=== PATIENT | male | born 1970 | race Caucasian/White ===

== ENCOUNTER 2016-10-26 15:20 | Emergency (ER) | payer BC, OTHER ==
[~2016-10-26] VITALS: Ht 180.3 cm; Wt 90.9 kg
[~2016-10-26 15:20] MED LIST: CLR10 PO; KETO10TA PO; OXYC-57 PO; PRAV20TA PO; PRLSR20 PO
[2016-10-26 15:24] VITALS: BP 142/94; PULSE 107; TEMP 36.6; O2SAT 97; Ht 180.3 cm; Wt 90.9 kg
[2016-10-26] MEDS ORDERED: IBUP-103 PO (15:50)
--- NOTE | 2016-10-26 16:47 | DIAGNOSTIC IMAGING REPORT ---
L-SPINE MIN 4 VIEWS ROUTINE CLINICAL HISTORY: Low back pain. Injury. COMPARISON: None FINDINGS: Alignment of lumbar spine is anatomic. Vertebral body heights are maintained. There is no acute fracture. Disc spaces are preserved. There is mild endplate osteophytosis. IMPRESSION: 1. No acute lumbar spine fracture or subluxation. 2. Mild multilevel degenerative changes of the lumbar spine. Electronically signed by: Armin Squires M.D. 10/26/2016 4:45 PM Dictated Date/Time: 10/26/2016 4:43 PM
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
== END 2016-10-26 17:25 | disposition home or self-care (01) ==
LOC: C.EDB 15:21 → C.EDD 17:25
DX: S39.012A Strain of muscle, fascia and tendon of lower back, initial encounter (principal); Y99.0 Civilian activity done for income or pay; V83.0XXA Driver of special industrial vehicle injured in traffic accident, initial encounter; I25.10 Atherosclerotic heart disease of native coronary artery without angina pectoris; E78.5 Hyperlipidemia, unspecified; K21.9 Gastro-esophageal reflux disease without esophagitis; Z82.49 Family history of ischemic heart disease and other diseases of the circulatory system; Z79.899 Other long term (current) drug therapy

== ENCOUNTER 2021-07-01 08:12 | Inpatient (IN) ==
[2021-07-01] MEDS ORDERED: ONDANSETRON INJ 2 MG/ML 2 ML VIAL IV STA (08:38)
[2021-07-01] MEDS ORDERED: MoRPHine SULFATE 4 MG/ML 1 ML CARP\\VIAL IV STA (08:38)
[2021-07-01] MEDS ORDERED: SODIUM CHLORIDE 0.9% 1000ML 1,000 ML IV STA (08:38)
[2021-07-01] MEDS ORDERED: MoRPHine SULFATE 4 MG/ML 1 ML CARP\\VIAL IV PRN ×2 (08:38→16:19)
[2021-07-01 09:33] LABS: Basophils # (auto) 0.02 K/uL (0-0.2); Basophils % (auto) 0.1 %; Eosinophils # (auto) 0.14 K/uL (0-0.5); Hematocrit (blood only) 46.7 % (42-52); Hemoglobin 16.1 g/dL (14.0-18.0); Immature Granulocytes # (auto) 0.02 K/uL (0.00-0.02); Immature Granulocytes % (auto) 0.1 %; Lymphocytes # (auto) 0.97 K/uL (1.2-3.4); Mean Corpuscular Hemoglobin 30.6 pg (25-34); Mean Corpuscular Hgb Conc 34.5 g/dL (32-36); Mean Corpuscular Volume 88.6 fL (80-100); Mean Platelet Volume 8.7 fL (7.4-10.4); Monocytes # (auto) 1.46 K/uL (0.11-0.59); Monocytes % (auto) 10.6 %; Neutrophils # (auto) 11.17 K/uL (1.4-6.5); Neutrophils % (auto) 81.2 %; Platelet Count 317 K/uL (130-400); RDW Standard Deviation 42.7 fL (36.4-46.3); Red Blood Count 5.27 M/uL (4.7-6.1); White Blood Count 13.78 K/uL (4.8-10.8)
[2021-07-01 09:50] LABS: Albumin Level 3.4 gm/dl (3.4-5.0); BUN Creatinine Ratio 9.3 (10-20); Calcium 8.9 mg/dl (8.5-10.1); Est GFR (African American) 71.2 ml/min; Est GFR (Non-African American) 61.5 ml/min; Potassium 3.9 mmol/L (3.5-5.1)
[2021-07-01 09:53] LABS: Albumin Globulin Ratio 0.7 (0.9-2); Bilirubin,Total 0.7 mg/dl (0.2-1); Globulin 4.8 gm/dl (2.5-4.0); Total Protein 8.2 gm/dl (6.4-8.2)
[2021-07-01 10:05] LABS: Appearance Urine Clear (Clear); Bacteria Urine Automated Negative (Negative); Blood Urine 2+ (Negative); Color Urine Dark Yellow; Glucose Urine UA Negative (Negative); Ketones Urine 1+ (Negative); Leukocyte Esterase Urine Negative (Negative); Nitrite Urine Negative (Negative); Protein Urine 1+ (Negative); RBC Urine Automated 0-4 /hpf (0-4); Specific Gravity Urine 1.023 (1.000-1.030); Urobilinogen Urine Negative (Negative); pH Urine 5.5 (4.5-7.5)
[2021-07-01 10:15] LABS: Bilirubin Urine 1+ (Negative)
[2021-07-01] MEDS ORDERED: OPTIRAY 320 100ml IV ONE (11:14)
--- NOTE | 2021-07-01 11:39 | CT Scan Report ---
ABDOMEN AND PELVIS CT WITH IV AND ORAL CONTRAST CT DOSE: 450.66 mGy.cm HISTORY: Lower abd pain TECHNIQUE: Multiaxial CT images of the abdomen and pelvis were performed following the use of intrave nous and oral contrast. A dose lowering technique was utilized adhering to the principles of ALARA. COMPARISON STUDY: None. FINDINGS: There is 9 mm subpleural nodule within the base of the right middle lobe on image 85. Groun dglass densities within the lung bases consistent with mild dependent change. No fractures within the visualized osseous structures. Tiny fat-containing left inguinal hernia. A few subcentimeter hypoden se lesions noted within the liver. These are technically too small to characterize but statistically represent cysts. The gallbladder, pancreas, spleen, adrenal glands, and kidneys are unremarkable. No retroperitoneal lymphadenopathy. The prostate gland is mildly enlarged. Bladder is decompressed. This moderate bladder wall thickening with adjacent fat stranding. Focal thickening within the sigmoid co malina with pericolonic fat stranding. This likely represents an acute sigmoid diverticulitis. There is a 4 cm pericolonic gas and fluid collection with near complete peripheral enhancement. Therefore, thi s is consistent with a pericolonic abscess. No evidence for bowel obstruction. Normal appendix. IMPRESSION: 1. Acute sigmoid diverticulitis with an associated 4 cm pericolonic abscess. Recommend follow-up to e nsure resolution. 2. No evidence of bowel structure. 3. Normal appendix. 4. No hydronephrosis. 5. A 9 mm subpleural nodule within the right lower lobe. [address] follow-up recommended to en sure stability. ACT 112: Positive. There are findings on this exam that require communication between the performing entity and the patient following Patient Test Result Information Act ([place] Act 112) guidelines. Electronically signed by: Phuc Dugan M.D. 07/01/2021 11:38 AM
[2021-07-01] MEDS ORDERED: PIPERACILLIN/TAZOBACTAM 4.5 GM/120 ML BAG IV ONE (12:28)
[2021-07-01] MEDS ORDERED: PIPERACILL/TAZOBAC CONSULT ACTIVE PRN ×3 (12:28→16:41)
--- NOTE | 2021-07-01 13:22 | History & Physical Report ---
Date of Service July 01, 2021 Assessment & Plan (1) Diverticulitis of large intestine with abscess: Plan: 50yo male with history of GERD and HLP presenting with acute complicated diverticulitis. He endorses two days of lower abdominal pain. CT with acute sigmoid diverticulitis with 4cm pericolonic abscess. Presently afebrile, HD stable, nontoxic in appearance. Abdomen is tender on exam but soft, ND. -Admit to medical. Keep patient NPO for now. -Appreciate General Surgery and GI assistance -Zosyn -Morphine PRN pain -Zofran PRN Nausea -Patient will need repeat imaging in 2-3 days to assess abscess response to antibiotics. (2) Nodule of lower lobe of right lung: Plan: Incidental finding -Repeat CT scan in 6 months (3) Hyperlipidemia: Plan: Chronic. Stable -Continue pravastatin 20 mg (4) GERD (gastroesophageal reflux disease): Plan: Chronic. Patient on Omeprazole at home -Pepcid 40mg po daily History of Present Illness Chief Complaint: Abdominal pain Primary Care Provider: Hailey Dale PA-C Maximiliano Márquez is a 50-year-old male presenting with diverticular abscess. Patient first developed abdominal pain on the evening of . He reports that he ate rather poorly that day. In the evening he developed severe lower abdominal pain and the feeling that he could not have a bowel movement. He states he passed a small bowel movement and some gas with relief. His symptoms then lasted approximately 1 day and resolved. Patient experienced similar symptoms beginning 2 days ago. He reports that he ate rather poorly during the day, a lot of sweets and desserts. In the evening he developed severe lower abdominal pain which has progressed over the last 2 days. The pain is sharp and stabbing in nature and radiates into his rectum. He has been taking Ex-Lax and passing very small stools. He is passing flatus. Last full bowel movement was 2 days ago. Last meal is also 2 days ago. Patient endorses subjective fevers and chills as well as mild nausea. He denies chest pain, palpitations, shortness of breath, cough. Denies vomiting or diarrhea. No melena or hematochezia. No additional complaints at this time. ER attending discussed patient with General Surgery who recommended GI consultation and IV antibiotics. ER course: Morphine, Zosyn, Zofran Allergies Allergy/AdvReac Type Severity Reaction Status Date / Time No Known Allergies Allergy Verified 07/01/21 08:40 Home Medications Medication Instructions Recorded Confirmed Type loratadine 10 mg tablet (Claritin) 10 mg PO QAM 05/26/21 07/01/21 History omeprazole 20 mg capsule,delayed 20 mg PO QAM 05/26/21 07/01/21 History release pravastatin 20 mg tablet 20 mg PO QAM 05/26/21 07/01/21 History Past Med/Surg History Medical History (Updated 07/01/21 @ 16:35 by Erica Rodas DO) Arthritis GERD (gastroesophageal reflux disease) Hayfever Hyperlipidemia Lyme disease RECENT TREATMENT Surgical History (Updated 07/01/21 @ 16:35 by Erica Rodas DO) History of arthroscopy of left shoulder History of esophagogastroduodenoscopy (EGD) History of repair of rotator cuff LEFT S/P arthroscopic partial medial meniscectomy Family History Other No family history of adverse response to anesthesia Social History Smoking Status: Never smoker Second Hand Exposure: Yes (IN THE PAST); Hx Alcohol Use: Yes Alcohol type: beer Hx Substance Use: No Preferred Language: Italian Communication Ability: Effective Processing Spec Required: No Beliefs That Will Affect Care: None Current Living Situation: Family Other Information That Helps Us Care for You: No Feels Safe at Home: Yes Safety Concerns: Feels Safe At This Time Assistive Devices: None Review of Systems Review of Systems: All systems reviewed & are unremarkable except as noted in HPI & below Physical Exam Physical Exam: General: patient resting comfortably, NAD, non-toxic in appearance, AA&O x 4 Skin: warm, dry, intact, no rashes or lesions HEENT: NC/AT, PERRL, EOMI, anicteric sclera, conjunctiva without injection, external ear normal to inspection and nontender, nares patent, moist mucus membranes, dentition intact, no oropharyngeal lesions, neck supple, trachea midline, no LAD, no thyromegaly, no JVD Heart: +S1/S2, regular, no m/r/g Lungs: equal air entry bilaterally, no rales/rhonchi/wheezes Abd: +BS, soft, ND tender in lower abdomen with voluntary guarding, no masses/organomegaly/ascites Ext: warm, 2+ pulses in UE/LE bilaterally, no clubbing/cyanosis or edema Neuro: nonfocal, patient AA&O x 4, speech intact, no facial droop, moving all extremities on command with equal strength 5/5 Results & Data Results & Data ([facility]) Vital Signs (Past 12 Hours) Vital Signs Temp Pulse Resp BP Pulse Ox 07/01/21 09:30 93 H 20 127/87 97 07/01/21 09:13 91 H 23 150/96 H 93 07/01/21 08:17 36.7 C 106 H 18 121/86 96 Laboratory Results Laboratory Results WBC 13.78 K/uL (4.8-10.8) H 07/01/21 09:03 RBC 5.27 M/uL (4.7-6.1) 07/01/21 09:03 Hgb 16.1 g/dL (14.0-18.0) 07/01/21 09:03 Hct 46.7 % (42-52) 07/01/21 09:03 MCV 88.6 fL (80-100) 07/01/21 09:03 MCH 30.6 pg (25-34) 07/01/21 09:03 MCHC 34.5 g/dL (32-36) 07/01/21 09:03 RDW Std Deviation 42.7 fL (36.4-46.3) 07/01/21 09:03 RDW Coeff of Nelly 13.0 % (11.5-14.5) 07/01/21 09:03 Plt Count 317 K/uL (130-400) 07/01/21 09:03 MPV 8.7 fL (7.4-10.4) 07/01/21 09:03 Immature Gran % (Auto) 0.1 % 07/01/21 09:03 Neut % (Auto) 81.2 % 07/01/21 09:03 Lymph % (Auto) 7.0 % 07/01/21 09:03 [place] % (Auto) 10.6 % 07/01/21 09:03 Eos % (Auto) 1.0 % 07/01/21 09:03 Baso % (Auto) 0.1 % 07/01/21 09:03 Neut # (Auto) 11.17 K/uL (1.4-6.5) H 07/01/21 09:03 Lymph # (Auto) 0.97 K/uL (1.2-3.4) L 07/01/21 09:03 [place] # (Auto) 1.46 K/uL (0.11-0.59) H 07/01/21 09:03 Eos # (Auto) 0.14 K/uL (0-0.5) 07/01/21 09:03 Baso # (Auto) 0.02 K/uL (0-0.2) 07/01/21 09:03 Immature Gran # (Auto) 0.02 K/uL (0.00-0.02) 07/01/21 09:03 Sodium 137 mmol/L (136-145) 07/01/21 09:03 Potassium 3.9 mmol/L (3.5-5.1) 07/01/21 09:03 Chloride 104 mmol/L (98-107) 07/01/21 09:03 Carbon Dioxide 26 mmol/L (21-32) 07/01/21 09:03 Anion Gap 7.0 (3-11) 07/01/21 09:03 BUN 12 mg/dl (7-18) 07/01/21 09:03 Creatinine 1.33 mg/dl (0.6-1.4) 07/01/21 09:03 Est Cr Clr Drug Dosing 70.0 ml/min 07/01/21 09:03 Est GFR ( Amer) 71.2 ml/min 07/01/21 09:03 Est GFR (Non-Af Amer) 61.5 ml/min 07/01/21 09:03 BUN/Creatinine Ratio 9.3 (10-20) L 07/01/21 09:03 Glucose 114 mg/dl (70-99) H 07/01/21 09:03 Calcium 8.9 mg/dl (8.5-10.1) 07/01/21 09:03 Total Bilirubin 0.7 mg/dl (0.2-1) 07/01/21 09:03 AST 11 U/L (15-37) L 07/01/21 09:03 ALT 15 U/L (12-78) 07/01/21 09:03 Alkaline Phosphatase 81 U/L (45-117) 07/01/21 09:03 Total Protein 8.2 gm/dl (6.4-8.2) 07/01/21 09:03 Albumin 3.4 gm/dl (3.4-5.0) 07/01/21 09:03 Globulin 4.8 gm/dl (2.5-4.0) H 07/01/21 09:03 Albumin/Globulin Ratio 0.7 (0.9-2) L 07/01/21 09:03 Lipase 117 U/L (73-393) 07/01/21 09:03 Urine Color Dark Yellow 07/01/21 09:25 Urine Appearance Clear (Clear) 07/01/21 09:25 Urine pH 5.5 (4.5-7.5) 07/01/21 09:25 Ur Specific Locke 1.023 (1.000-1.030) 07/01/21 09:25 Urine Protein 1+ (Negative) H 07/01/21 09:25 Urine Glucose (UA) Negative (Negative) 07/01/21 09:25 Urine Ketones 1+ (Negative) H 07/01/21 09:25 Urine Blood 2+ (Negative) H 07/01/21 09:25 Urine Nitrite Negative (Negative) 07/01/21 09:25 Urine Bilirubin 1+ (Negative) H 07/01/21 09:25 Urine Urobilinogen Negative (Negative) 07/01/21 09:25 Ur Leukocyte Esterase Negative (Negative) 07/01/21 09:25 Urine WBC (Auto) 1-5 /hpf (0-5) 07/01/21 09:25 Urine RBC (Auto) 0-4 /hpf (0-4) 07/01/21 09:25 U Hyaline Cast (Auto) 5-10 /lpf (0-5) H 07/01/21 09:25 U Epithel Cells (Auto) 10-20 /lpf (0-5) H 07/01/21 09:25 Urine Bacteria (Auto) Negative (Negative) 07/01/21 09:25 COVID-19 Eval Order Covid19 at [facility] 07/01/21 13:28 SARS-CoV-2 (PCR) NEGATIVE (Negative) 07/01/21 13:28 Impressions Abdomen/Pelvis CT 07/01/21 08:[address] WITH IV AND ORAL CONTRAST CT DOSE: 450.66 mGy.cm HISTORY: Lower abd pain TECHNIQUE: Multiaxial CT images of the abdomen and pelvis were performed following the use of intravenous and oral contrast. A dose lowering technique was utilized adhering to the principles of ALARA. COMPARISON STUDY: None. FINDINGS: There is 9 mm subpleural nodule within the base of the right middle lobe on image 85. Groundglass densities within the lung bases consistent with mild dependent change. No fractures within the visualized osseous structures. Tiny fat-containing left inguinal hernia. A few subcentimeter hypodense lesions noted within the liver. These are technically too small to characterize but statistically represent cysts. The gallbladder, pancreas, spleen, adrenal glands, and kidneys are unremarkable. No retroperitoneal lymphadenopathy. The prostate gland is mildly enlarged. Bladder is decompressed. This moderate bladder wall thickening with adjacent fat stranding. Focal thickening within the sigmoid colon with pericolonic fat stranding. This likely represents an acute sigmoid diverticulitis. There is a 4 cm pericolonic gas and fluid collection with near complete peripheral enhancement. Therefore, this is consistent with a pericolonic abscess. No evidence for bowel obstruction. Normal appendix. IMPRESSION: 1. Acute sigmoid diverticulitis with an associated 4 cm pericolonic abscess. Recommend follow-up to ensure resolution. 2. No evidence of bowel structure. 3. Normal appendix. 4. No hydronephrosis. 5. A 9 mm subpleural nodule within the right lower lobe. [address] follow-up recommended to ensure stability. ACT 112: Positive. There are findings on this exam that require communication between the performing entity and the patient following Patient Test Result Information Act ([place] Act 112) guidelines. Electronically signed by: Phuc Dugan M.D. 07/01/2021 11:38 AM Code Status & VTE Plan VTE Prophylaxis Plan VTE Prophylaxis will be ordered: Yes PG Care Time/CCT Total # of Minutes Spent Total Time Spent with Patient: Total time spent is greater than 50% in coordination of care (as documented) at patient's floor/unit and/or counseling patient: Coding Level of Care Code 81450 Initial Inpt Care Lvl 2 Diagnoses Diverticulitis of large intestine with abscess K57.20 Diverticulitis bleeding: without bleeding Nodule of lower lobe of right lung R91.1 Hyperlipidemia E78.5 GERD (gastroesophageal reflux disease) K21.9 (1) Diverticulitis of large intestine with abscess Diverticulitis bleeding: without bleeding Qualified Code(s): K57.20 - Diverticulitis of large intestine with perforation and abscess without bleeding
--- NOTE | 2021-07-01 15:02 | Emergency Department Note ---
History of Present Illness General Chief complaint: Abdominal Pain Stated complaint: SEVERE ABDOMINAL PAIN Time Seen by Provider: 07/01/21 08:26 History of Present Illness Maximum Pain Intensity: 2 50-year-old male who presents to the emergency department with his for evaluation of severe left lower quadrant abdominal pain that started 11 days ago, and has progressively worsened since that time. The patient initially reported that it felt like he needed to have a bowel movement, or pass gas. When he did so, this did relieve his pain, but it came right back. He then tried laxatives with similar response. With the worsening and more constant pain, the patient came to the emergency department for further evaluation. He denies any fever or chills. He reports minimal nausea. He rates his discomfort an 8 out of 10. His sister does have a prior history of diverticulitis. The patient has not had a colonoscopy study. He has had an upper endoscopy showing polyps and other changes consistent with GERD. Home Medications Medication Instructions Recorded Confirmed Type loratadine 10 mg tablet (Claritin) 10 mg PO QAM 05/26/21 07/01/21 History omeprazole 20 mg capsule,delayed 20 mg PO QAM 05/26/21 07/01/21 History release pravastatin 20 mg tablet 20 mg PO QAM 05/26/21 07/01/21 History Allergies Allergy/AdvReac Type Severity Reaction Status Date / Time No Known Allergies Allergy Verified 07/01/21 08:40 Past Med/Surg History Medical History (Updated 07/01/21 @ 16:35 by Erica Rodas DO) Arthritis GERD (gastroesophageal reflux disease) Hayfever Hyperlipidemia Lyme disease RECENT TREATMENT Surgical History (Updated 07/01/21 @ 16:35 by Erica Rodas DO) History of arthroscopy of left shoulder History of esophagogastroduodenoscopy (EGD) History of repair of rotator cuff LEFT S/P arthroscopic partial medial meniscectomy Family History Other No family history of adverse response to anesthesia Social History Smoking Status: Never smoker Second Hand Exposure: Yes (IN THE PAST); Hx Alcohol Use: Yes Alcohol type: beer Hx Substance Use: No Preferred Language: Guatemalan Communication Ability: Effective Roller Stainer Required: No Beliefs That Will Affect Care: None Current Living Situation: Family Other Information That Helps Us Care for You: No Feels Safe at Home: Yes Safety Concerns: Feels Safe At This Time Assistive Devices: None Review of Systems 10 system review was performed and was negative except for pertinent positives and negatives as indicated in history of present illness Physical Exam Vital Signs Vital Signs - 24 hr 07/01/21 08:17 07/01/21 09:13 07/01/21 09:30 Temperature 36.7 C Temperature Source Oral Pulse Rate 106 H 91 H 93 H Pulse Rate from SpO2 Sensor 92 H 95 H Respiratory Rate 18 23 20 Blood Pressure 121/86 150/96 H 127/87 Blood Pressure Mean 97 114 100 Pulse Oximetry 96 93 97 Oxygen Delivery Method Room Air Sepsis Recent Fever Within 48 Hours No Sepsis New/Unexplained Change in Mental Status No Sepsis Action Taken by Nursing No Action Required 07/01/21 10:00 07/01/21 10:30 07/01/21 11:00 Temperature Temperature Source Pulse Rate 91 H 90 94 H Pulse Rate from SpO2 Sensor 91 H 90 95 H Respiratory Rate 26 H 23 20 Blood Pressure 142/91 H 127/86 119/85 Blood Pressure Mean 108 99 96 Pulse Oximetry 95 93 94 Oxygen Delivery Method Sepsis Recent Fever Within 48 Hours Sepsis New/Unexplained Change in Mental Status Sepsis Action Taken by Nursing 07/01/21 11:30 07/01/21 12:00 07/01/21 12:30 Temperature Temperature Source Pulse Rate 90 86 87 Pulse Rate from SpO2 Sensor 90 85 87 Respiratory Rate 24 21 22 Blood Pressure 117/69 105/64 150/71 H Blood Pressure Mean 85 77 97 Pulse Oximetry 93 94 93 Oxygen Delivery Method Sepsis Recent Fever Within 48 Hours Sepsis New/Unexplained Change in Mental Status Sepsis Action Taken by Nursing 07/01/21 13:00 Temperature Temperature Source Pulse Rate 94 H Pulse Rate from SpO2 Sensor 94 H Respiratory Rate 23 Blood Pressure 125/70 Blood Pressure Mean 88 Pulse Oximetry 97 Oxygen Delivery Method Sepsis Recent Fever Within 48 Hours Sepsis New/Unexplained Change in Mental Status Sepsis Action Taken by Nursing CONSTITUTIONAL: Healthy and well nourished. Patient does not appear toxic, but does appear in moderate discomfort. HEENT: No scleral icterus or conjunctival injection/pallor. NECK: Full active range of motion without discomfort. LYMPHATICS: No cervical chain adenopathy. RESPIRATORY: Clear to auscultation bilaterally with no wheezing, crackles, rhonchi or stridor. CARDIOVASCULAR: Regular rate and rhythm with no murmurs, rubs or gallops. GASTROINTESTINAL: Bowel sounds present in all quadrants. Patient has notable left lower quadrant tenderness to palpation without rigidity, guarding or rebound. Negative CVA tenderness. Negative McBurney's point tenderness. MUSCULOSKELETAL: No obvious soft tissue edema, erythema or tenderness to palpation over the major joints.. INTEGUMENTARY: No rash or other significant dermatologic conditions noted. HEMATOLOGIC: No ecchymosis or petechiae. PSYCHIATRIC: Positive affect. NEUROLOGIC: No focal neurologic deficits noted. Course Course Patient history and physical exam were performed. Nurses notes were reviewed. Vital signs were reviewed, showing a mild tachycardia. The patient is afebrile and normotensive in triage. IV access was established, and labs were drawn the patient hydrated with a liter of saline, and administered IV morphine and Zofran . Review of labs shows a mild leukocytosis of 13.78, with left shift and no bandemia. CMP shows a mildly elevated glucose, otherwise remaining labs and lipase are normal. Urinalysis shows 1+ ketonuria and 2+ hematuria and bilirubinuria. And has CT of the abdomen and pelvis shows evidence for a 4 cm pericolonic sigmoid diverticular abscess. Findings were discussed with the patient, as well a Dr. Clark, ED attending physician, who recommended surgical consultation. The case was then discussed with Dr. Graham who feels that surgical intervention or IR drainage is needed. He has recommended IV antibiotics, hospitalist admission and GI consultation. An order was placed for IV Zosyn. The patient agreed with admission. The case was then discussed with the [facility] Hospitalist service. The patient was administered an additional dose of IV morphine while under my care. Please see the hospitalist service notes for further treatment and final disposition. Administered Medications Lactated Ringer's (Lr) 1,000 mls @ 125 mls/hr IV .Q8H NAYELI Stop: 07/02/21 08:08 Last Admin: 07/01/21 16:15 Dose: 125 mls/hr Documented by: [id number] Discontinued Medications Sodium Chloride (Nss 1000ml) 1,000 mls @ 999 mls/hr IV .Q1H1M STA Stop: 07/01/21 09:38 Last Infusion: 07/01/21 10:00 Dose: 0 mls/hr Documented by: [id number] Admin: 07/01/21 09:19 Dose: 999 mls/hr Documented by: [id number] Piperacillin Sod/Tazobactam Sod (Zosyn) 4.5 gm in 120 mls @ 240 mls/hr IV NOW ONE Stop: 07/01/21 12:57 Last Infusion: 07/01/21 13:46 Dose: 0 mls/hr Documented by: [id number] Admin: 07/01/21 13:16 Dose: 240 mls/hr Documented by: [id number] Ioversol (Optiray 320 100ml) 94 ml IV ONCE ONE Stop: 07/01/21 11:15 Last Admin: 07/01/21 11:15 Dose: 94 ml Documented by: [id number] Morphine Sulfate (Morphine Sulfate 4 Mg/Ml 1 Ml Carp\Vial) 4 mg IV NOW STA Stop: 07/01/21 08:39 Last Admin: 07/01/21 09:18 Dose: 4 mg Documented by: [id number] Morphine Sulfate (Morphine Sulfate 4 Mg/Ml 1 Ml Carp\Vial) 4 mg IV Q30M PRN PRN Reason: Pain Stop: 07/15/21 08:37 Last Admin: 07/01/21 13:22 Dose: 4 mg Documented by: [id number] Ondansetron HCl (Ondansetron Inj 2 Mg/Ml 2 Ml Vial) 4 mg IV NOW STA Stop: 07/01/21 08:39 Last Admin: 07/01/21 09:19 Dose: 4 mg Documented by: [id number] Medical Decision Making Medical Records Attestation: I reviewed the patient's medical records. Home Medications Current Medication List: was personally reviewed by me Laboratory Data Attestation: I reviewed the patient's lab results. Result diagrams: 07/01/21 09:03 07/01/21 09:03 Lab Results 07/01/21 07/01/21 07/01/21 Range/Units 09:03 09:03 09:25 WBC 13.78 H (4.8-10.8) K/uL RBC 5.27 (4.7-6.1) M/uL Hgb 16.1 (14.0-18.0) g/dL Hct 46.7 (42-52) % MCV 88.6 (80-100) fL MCH 30.6 (25-34) pg MCHC 34.5 (32-36) g/dL RDW Std Deviation 42.7 (36.4-46.3) fL RDW Coeff of Nelly 13.0 (11.5-14.5) % Plt Count 317 (130-400) K/uL MPV 8.7 (7.4-10.4) fL Immature Gran % (Auto) 0.1 % Neut % (Auto) 81.2 % Lymph % (Auto) 7.0 % [place] % (Auto) 10.6 % Eos % (Auto) 1.0 % Baso % (Auto) 0.1 % Neut # (Auto) 11.17 H (1.4-6.5) K/uL Lymph # (Auto) 0.97 L (1.2-3.4) K/uL [place] # (Auto) 1.46 H (0.11-0.59) K/uL Eos # (Auto) 0.14 (0-0.5) K/uL Baso # (Auto) 0.02 (0-0.2) K/uL Immature Gran # (Auto) 0.02 (0.00-0.02) K/uL Sodium 137 (136-145) mmol/L Potassium 3.9 (3.5-5.1) mmol/L Chloride 104 (98-107) mmol/L Carbon Dioxide 26 (21-32) mmol/L Anion Gap 7.0 (3-11) BUN 12 (7-18) mg/dl Creatinine 1.33 (0.6-1.4) mg/dl Est Cr Clr Drug Dosing 70.0 ml/min Est GFR ( Amer) 71.2 ml/min Est GFR (Non-Af Amer) 61.5 ml/min BUN/Creatinine Ratio 9.3 L (10-20) Glucose 114 H (70-99) mg/dl Calcium 8.9 (8.5-10.1) mg/dl Total Bilirubin 0.7 (0.2-1) mg/dl AST 11 L (15-37) U/L ALT 15 (12-78) U/L Alkaline Phosphatase 81 (45-117) U/L Total Protein 8.2 (6.4-8.2) gm/dl Albumin 3.4 (3.4-5.0) gm/dl Globulin 4.8 H (2.5-4.0) gm/dl Albumin/Globulin Ratio 0.7 L (0.9-2) Lipase 117 (73-393) U/L Urine Color Dark Yellow Urine Appearance Clear (Clear) Urine pH 5.5 (4.5-7.5) Ur Specific [place] 1.023 (1.000-1.030) Urine Protein 1+ H (Negative) Urine Glucose (UA) Negative (Negative) Urine Ketones 1+ H (Negative) Urine Blood 2+ H (Negative) Urine Nitrite Negative (Negative) Urine Bilirubin 1+ H (Negative) Urine Urobilinogen Negative (Negative) Ur Leukocyte Esterase Negative (Negative) Urine WBC (Auto) 1-5 (0-5) /hpf Urine RBC (Auto) 0-4 (0-4) /hpf U Hyaline Cast (Auto) 5-10 H (0-5) /lpf U Epithel Cells (Auto) 10-20 H (0-5) /lpf Urine Bacteria (Auto) Negative (Negative) Imaging Data Attestation: I personally reviewed and interpreted this imaging study as follows: My Impression: My interpretation of an enhanced CT of the abdomen and pelvis shows evidence for a 4 cm pericolonic sigmoid diverticular abscess. No obvious evidence for perforation, obstruction, appendicitis or other acute and abdominal findings. Radiologist report was also reviewed, showing a 9 mm subpleural nodule within the right lower lobe, with a 6-month chest CT follow-up recommended. Radiologist's Impression: Abdomen/Pelvis CT 07/01/21 08:[address] WITH IV AND ORAL CONTRAST CT DOSE: 450.66 mGy.cm HISTORY: Lower abd pain TECHNIQUE: Multiaxial CT images of the abdomen and pelvis were performed following the use of intravenous and oral contrast. A dose lowering technique was utilized adhering to the principles of ALARA. COMPARISON STUDY: None. FINDINGS: There is 9 mm subpleural nodule within the base of the right middle lobe on image 85. Groundglass densities within the lung bases consistent with mild dependent change. No fractures within the visualized osseous structures. Tiny fat-containing left inguinal hernia. A few subcentimeter hypodense lesions noted within the liver. These are technically too small to characterize but statistically represent cysts. The gallbladder, pancreas, spleen, adrenal glands, and kidneys are unremarkable. No retroperitoneal lymphadenopathy. The prostate gland is mildly enlarged. Bladder is decompressed. This moderate bladder wall thickening with adjacent fat stranding. Focal thickening within the sigmoid colon with pericolonic fat stranding. This likely represents an acute sigmoid diverticulitis. There is a 4 cm pericolonic gas and fluid collection with near complete peripheral enhancement. Therefore, this is consistent with a pericolonic abscess. No evidence for bowel obstruction. Normal appendix. IMPRESSION: 1. Acute sigmoid diverticulitis with an associated 4 cm pericolonic abscess. Recommend follow-up to ensure resolution. 2. No evidence of bowel structure. 3. Normal appendix. 4. No hydronephrosis. 5. A 9 mm subpleural nodule within the right lower lobe. [address] follow-up recommended to ensure stability. ACT 112: Positive. There are findings on this exam that require communication between the performing entity and the patient following Patient Test Result Information Act ([place] Act 112) guidelines. Electronically signed by: Phuc Dugan M.D. 07/01/2021 11:38 AM Blood Pressure Blood Pressure Findings: Elevated blood pressure Blood Pressure Disposition: further management by hospitalist ANGELA Glover Patient presents with an 11-day history of left lower quadrant abdominal pain. CT imaging today does show evidence for a sigmoid diverticular abscess. Patient is afebrile, but does have a mild leukocytosis. Remaining labs are not suggestive of pancreatitis, cholecystitis, hepatitis or UTI. The patient does have hematuria of unknown etiology, and no evidence for obstructive uropathy are noted on CT imaging. The patient also has an incidental 9 mm right lower lobe subpleural nodule that will require surveillance. Per surgical consultation, guera parra does not need any further surgical or interventional radiology treatment at this time. The patient will be admitted with IV antibiotics, and GI consultation. Impression & Plan Diverticulitis of large intestine with abscess, Nodule of lower lobe of right lung, Hematuria Discharge Plan Visit Data Chief Complaint: Abdominal Pain Stated Complaint: SEVERE ABDOMINAL PAIN ED Provider: Christos Clark ED Midlevel Provider: Josué Foy Discharge Problem: Diverticulitis of large intestine with abscess, Nodule of lower lobe of right lung, Hematuria Patient Disposition: Admitted As Inpatient Discharge Instructions Interventions: ED Discharge Assessment Last Done: 07/01/21 15:57 Discharge Problem: Diverticulitis of large intestine with abscess Qualifiers: Diverticulitis bleeding: without bleeding Qualified Code(s): K57.20 - Diverticulitis of large intestine with perforation and abscess without bleeding Hematuria Qualifiers: Hematuria type: unspecified type Qualified Code(s): R31.9 - Hematuria, unspecified
[2021-07-01] MEDS: LACTATED RINGER'S 1,000 ML IV SCH ×2 (16:15→23:52)
[2021-07-01] MEDS ORDERED: MoRPHine SULFATE 2 MG/ML CARP IV PRN (16:19)
[2021-07-01] MEDS ORDERED: ONDANSETRON INJ 2 MG/ML 2 ML VIAL IV PRN (16:19)
[2021-07-01] MEDS ORDERED: DOCUSATE SODIUM 100 MG CAP PO PRN (16:19)
[2021-07-01] MEDS: PIPERACILLIN/TAZOBACTAM 3.375 GM in DEXTROSE 5% 100 ML IV SCH (17:54)
[2021-07-01] MEDS ORDERED: PIPERACILLIN/TAZOBACTAM 4.5 GM in DEXTROSE 5% 100 ML IV SCH (18:00)
[2021-07-01] MEDS: ACETAMINOPHEN 325 MG TAB PO PRN (18:33)
--- NOTE | 2021-07-01 20:33 | Surgery Consultation ---
Date of Consultation July 01, 2021 Assessment & Plan (1) Diverticulitis of large intestine with abscess: Diverticular disease was explained to the patient regarding etiology acute management with antibiotics and in his case with a 4 cm abscess hopefully that will resolve if the clinical situation would worsen that we would repeat the CAT scan At this time continue with IV antibiotics n.p.o. 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 [place] developed left lower quadrant pain with some constipation treated himself at home with some Epson salt pain were eventually away in a few days Monday developed left lower quadrant pain with occasional chill and constipation was evaluated here in the ER and found to have a 4 cm colonic diverticular abscess There is no family history of colonic cancer although there is a history of diverticulitis and diverticulosis namely his sister He has not had colonoscopy Allergies Allergy/AdvReac Type Severity Reaction Status Date / Time No Known Allergies Allergy Verified 07/01/21 08:40 Home Medications Medication Instructions Recorded Confirmed Type loratadine 10 mg tablet (Claritin) 10 mg PO QAM 05/26/21 07/01/21 History omeprazole 20 mg capsule,delayed 20 mg PO QAM 05/26/21 07/01/21 History release pravastatin 20 mg tablet 20 mg PO QAM 05/26/21 07/01/21 History Patient History Medical History (Updated 07/01/21 @ 16:35 by Erica Rodas DO) Arthritis GERD (gastroesophageal reflux disease) Hayfever Hyperlipidemia Lyme disease RECENT TREATMENT Surgical History (Updated 07/01/21 @ 16:35 by Erica Rodas DO) History of arthroscopy of left shoulder History of esophagogastroduodenoscopy (EGD) History of repair of rotator cuff LEFT S/P arthroscopic partial medial meniscectomy Family History Other No family history of adverse response to anesthesia Social History Smoking Status: Never smoker Second Hand Exposure: Yes (IN THE PAST); Hx Alcohol Use: Yes Alcohol type: beer Hx Substance Use: No Preferred Language: Kinyarwanda Communication Ability: Effective Cigar Packer Required: No Beliefs That Will Affect Care: None Current Living Situation: Family Other Information That Helps Us Care for You: No Feels Safe at Home: Yes Safety Concerns: Feels Safe At This Time Assistive Devices: None Physical Exam Physical Exam: Patient is alert coherent resting comfortably in bed feeling somewhat nauseated but no emesis has not had any flatus Gastrointestinal (Abdomen): The abdomen is minimally distended there is no palpable masses suprapubic area some fullness and some deep tenderness to palpation Results & Data ([facility]) Vital Signs (Past 12 Hours) Vital Signs Temp Pulse Pulse Resp BP BP Pulse Ox 07/01/21 16:19 36.8 C 87 18 115/84 96 07/01/21 15:00 85 19 117/83 94 07/01/21 14:31 82 19 149/111 H 93 07/01/21 14:00 88 15 122/69 94 07/01/21 13:31 88 23 158/109 H 96 07/01/21 13:00 94 H 23 125/70 97 07/01/21 12:30 87 22 150/71 H 93 07/01/21 12:00 86 21 105/64 94 07/01/21 11:30 90 24 117/69 93 07/01/21 11:00 94 H 20 119/85 94 07/01/21 10:30 90 23 127/86 93 07/01/21 10:00 91 H 26 H 142/91 H 95 07/01/21 09:30 93 H 20 127/87 97 07/01/21 09:13 91 H 23 150/96 H 93 Laboratory Results White count elevation noted Diagnostic Findings CT scan noted PG Care Time/CCT Total # of Minutes Spent Total Time Spent with Patient: Total time spent is greater than 50% in coordination of care (as documented) at patient's floor/unit and/or counseling patient: Coding Level of Care Code 49008 Inpt Consult Level 3 Diagnoses Diverticulitis of large intestine with abscess K57.20 Diverticulitis bleeding: without bleeding (1) Diverticulitis of large intestine with abscess Diverticulitis bleeding: without bleeding Qualified Code(s): K57.20 - Diverticulitis of large intestine with perforation and abscess without bleeding
[2021-07-02] MEDS: PIPERACILLIN/TAZOBACTAM 3.375 GM in DEXTROSE 5% 100 ML IV SCH ×3 (02:35→18:18)
[2021-07-02 06:35] LABS: Basophils # (auto) 0.02 K/uL (0-0.2); Basophils % (auto) 0.3 %; Eosinophils # (auto) 0.35 K/uL (0-0.5); Eosinophils % (auto) 4.8 %; Hematocrit (blood only) 42.9 % (42-52); Hemoglobin 14.8 g/dL (14.0-18.0); Immature Granulocytes # (auto) 0.01 K/uL (0.00-0.02); Immature Granulocytes % (auto) 0.1 %; Lymphocytes # (auto) 1.21 K/uL (1.2-3.4); Lymphocytes % (auto) 16.7 %; Mean Corpuscular Hemoglobin 30.4 pg (25-34); Mean Corpuscular Hgb Conc 34.5 g/dL (32-36); Mean Corpuscular Volume 88.1 fL (80-100); Mean Platelet Volume 8.7 fL (7.4-10.4); Monocytes # (auto) 0.98 K/uL (0.11-0.59); Monocytes % (auto) 13.5 %; Neutrophils # (auto) 4.69 K/uL (1.4-6.5); Neutrophils % (auto) 64.6 %; Platelet Count 290 K/uL (130-400); RDW Coefficient of Variation 13.2 % (11.5-14.5); RDW Standard Deviation 42.4 fL (36.4-46.3); Red Blood Count 4.87 M/uL (4.7-6.1); White Blood Count 7.26 K/uL (4.8-10.8)
[2021-07-02 07:09] LABS: BUN Creatinine Ratio 8.5 (10-20); Calcium 8.6 mg/dl (8.5-10.1); Creatinine Clr Calc Pharmacy 87.7 ml/min; Est GFR (African American) 84.9 ml/min; Est GFR (Non-African American) 73.3 ml/min; Potassium 3.5 mmol/L (3.5-5.1)
[2021-07-02] MEDS: FAMOTIDINE 40 MG TABLET PO SCH (07:28)
[2021-07-02] MEDS: PRAVASTATIN SOD 20 MG TAB PO SCH (07:28)
--- NOTE | 2021-07-02 07:44 | Surgery Progress Note ---
Date of Service July 02, 2021 Assessment & Plan (1) Diverticulitis of large intestine with abscess: Plan: PAD #1 This point clinically the patient is responding to present therapy we will start him on some clear liquids Anticipate will be here at least over the weekend on IV antibiotics and if he continues on the present rate continue as an outpatient on p.o. antibiotics for another 10 days At this time no need to repeat any CT scan follow the abscess on a clinical basis if he should deteriorate then order another scan Dr. Gonzales will be covering the weekend Diverticular disease was explained to the patient regarding etiology acute management with antibiotics and in his case with a 4 cm abscess hopefully that will resolve if the clinical situation would worsen that we would repeat the CAT scan At this time continue with IV antibiotics n.p.o. status except for some water sips and we could restart a diet depending on his clinical course All questions were answered including indication for acute surgery interventional radiologist procedure should his his clinical history deteriorate Admission and Anticipated Discharge Date Admission Date: July 01, 2021 Subjective Feels much better than yesterday has had a few loose bowel movements abdominal discomfort is subsiding Physical Exam Physical Exam: Alert coherent comfortable laying in bed without any abdominal discomfort The abdomen is softer than yesterday still has some suprapubic left lower quadrant guarding but no tenderness Results & Data ([facility]) Vital Signs (Past 12 Hours) Vital Signs Temp Pulse Resp BP Pulse Ox 07/01/21 23:22 36.5 C 64 16 120/77 96 PG Care Time/CCT Total # of Minutes Spent Total Time Spent with Patient: Total time spent is greater than 50% in coordination of care (as documented) at patient's floor/unit and/or counseling patient: Coding Level of Care Code 34062 Subseq Hosp Care Lvl 3 Diagnoses Diverticulitis of large intestine with abscess K57.20 Diverticulitis bleeding: without bleeding (1) Diverticulitis of large intestine with abscess Diverticulitis bleeding: without bleeding Qualified Code(s): K57.20 - Diverticulitis of large intestine with perforation and abscess without bleeding
[2021-07-02] MEDS: LACTATED RINGER'S 1,000 ML IV SCH ×2 (09:09→19:33)
--- NOTE | 2021-07-02 10:19 | Gastrointestinal Consultation ---
Date of Consultation July 02, 2021 Assessment & Plan (1) Diverticulitis of large intestine with abscess: 1. Continue IV antibiotics. 2. Clear liquids with advancement to low residue diet as tolerated. 3. Should complete a 10 day course of oral antibiotics upon discharge. 4. Outpatient colonoscopy 6 weeks upon completion of treatment for diverticulitis. 5. Supportive care per primary team. Thank you for allowing us to participating in the care of this pleasant patient. If you have questions or concerns, please do not hesitate to contact us. Supervising Physician Co-Signing Physician Notes I personally evaluated the patient and agree with the findings as documented by CARMEN Rivera Exam: abd: soft, nt, nd continue abx, colonoscopy in 6 weeks. History of Present Illness Reason for Consultation: Diverticular Abscess Requesting Physician: Dr. Rodas Attending Physician: Yovany Bryant DO History of Present Illness Patient is a very pleasant 50 y.o. male with a history of GERD admitted with left lower quadrant pain that had been ongoing intermittently since and abnormal CT imaging consistent with acute diverticulitis with associated 4 cm abscess. There was associated mild leukocytosis but no anemia. The patient was made NPO and started on IV Zosyn. He has since had resolution of the leukocytosis. Reports his abdominal pain has significantly decreased. Continues with watery diarrhea. No blood in stool. +bloating. No fevers or chills, nausea or vomiting or other GI complaints. Dr. Graham of general surgery has evaluated the patient and no acute surgical intervention is recommended. Diet has been advanced to clear liquids. Allergies Allergy/AdvReac Type Severity Reaction Status Date / Time No Known Allergies Allergy Verified 07/01/21 08:40 Home Medications Medication Instructions Recorded Confirmed Type loratadine 10 mg tablet (Claritin) 10 mg PO QAM 05/26/21 07/01/21 History omeprazole 20 mg capsule,delayed 20 mg PO QAM 05/26/21 07/01/21 History release pravastatin 20 mg tablet 20 mg PO QAM 05/26/21 07/01/21 History Patient History Medical History Arthritis GERD (gastroesophageal reflux disease) Hayfever Hyperlipidemia Lyme disease RECENT TREATMENT Surgical History History of arthroscopy of left shoulder History of esophagogastroduodenoscopy (EGD) History of repair of rotator cuff LEFT S/P arthroscopic partial medial meniscectomy Family History Other No family history of adverse response to anesthesia Social History Smoking Status: Never smoker Second Hand Exposure: Yes (IN THE PAST); Hx Alcohol Use: Yes Alcohol type: beer Hx Substance Use: No Preferred Language: Italian Communication Ability: Effective Pensionholder Information Clerk Required: No Beliefs That Will Affect Care: None Current Living Situation: Family Other Information That Helps Us Care for You: No Feels Safe at Home: Yes Safety Concerns: Feels Safe At This Time Assistive Devices: None Review of Systems Review of Systems: A 13 point review of systems was negative other than pertinent positives and negatives as per the HPI. Physical Exam Constitutional: WD/WN, vitals as above Eyes: EOM intact bilaterally Neck: normal appearance Respiratory: normal respiratory effort, lungs clear to auscultation Cardiovascular: Rate/Rhythm: regular rate and regular rhythm Heart Sounds: no gallop and no murmur Gastrointestinal (Abdomen): Inspection/Auscultation: + abdomen distended and + hyperactive bowel sounds Percussion/Palpation: + abdomen tender (LLQ ) and abdomen soft Musculoskeletal: Extremities: no cyanosis no lower extremity edema Skin: no rashes, warm and dry Neurologic: moves all extremities Psychiatric: A+Ox3, euthymic affect Results & Data ([facility]) Vital Signs (Past 12 Hours) Vital Signs Temp Pulse Resp BP BP Pulse Ox 07/02/21 08:23 36.5 C 74 16 132/90 97 07/01/21 23:22 36.5 C 64 16 120/77 96 Laboratory Results Abnormal lab results 07/01/21 07/02/21 07/02/21 Range/Units 09:03 06:15 06:15 [place] # (Auto) 0.98 H (0.11-0.59) K/uL BUN/Creatinine Ratio 8.5 L (10-20) Magnesium 2.5 H (1.8-2.4) mg/dl PG Care Time/CCT Total # of Minutes Spent Total Time Spent with Patient: Total time spent is greater than 50% in coordination of care (as documented) at patient's floor/unit and/or counseling patient: Coding Level of Care Code 85778 Inpt Consult Level 4 Diagnoses Diverticulitis of large intestine with abscess K57.20 Diverticulitis bleeding: without bleeding (1) Diverticulitis of large intestine with abscess Diverticulitis bleeding: without bleeding Qualified Code(s): K57.20 - Diverticulitis of large intestine with perforation and abscess without bleeding
--- NOTE | 2021-07-02 17:39 | Hospitalist Progress Note ---
Date of Service July 02, 2021 Assessment & Plan (1) Diverticulitis of large intestine with abscess: Plan: -CT with acute sigmoid diverticulitis with 4cm pericolonic abscess -Hospitalized with hopes that this will respond to conservative management -Was made n.p.o. upfront and has since been given clear liquids and subsequently uptitrated to full liquid by general surgery -Receiving Zosyn IV -His leukocytosis have since resolved. He has remained afebrile and hemodynamically stable. He does not appear ill or toxic. His abdominal pain has nearly resolved. -General surgery on consultappreciate recommendations. With a 4 cm abscess, may or may not respond clinically. Recommendations are for conservative management. No need for repeat imaging as per general surgery unless patient's clinical status declines. -We will reimage if he develops worsening leukocytosis, fever, hemodynamic instability, worsening pain and/or nausea/vomiting (2) Nodule of lower lobe of right lung: Plan: Incidental finding -Repeat CT scan in 6 months (3) Hyperlipidemia: Plan: Chronic. Stable -Continue pravastatin 20 mg (4) GERD (gastroesophageal reflux disease): Plan: Chronic. Patient on Omeprazole at home -Pepcid 40mg po daily Plan: -Plan of care discussed with Dr. Bryant. Further orders as warranted. Admission and Anticipated Discharge Date Admission Date: July 01, 2021 Subjective Patient seen on daily rounds today. He is a 50-year-old white male with no significant past medical history who was hospitalized with sigmoid diverticulitis with an associated 4 cm abscess. He did have leukocytosis of 13.78 but was afebrile and hemodynamically stable. General surgery on board and believes this may improve with conservative management Patient remains on IV Zosyn. Was initially made n.p.o. upfront but has shown favorable clinical response. Has been uptitrated and now is on a full liquid diet. His white blood cell count has normalized. He is remained afebrile and hemodynamically stable. His pain has nearly resolved. Review of Systems Review of Systems: All systems reviewed and are unremarkable except as noted in HPI and below Denies fevers, chills, headache, nasal congestion, sore throat, cough, chest pain, shortness of breath, palpitations, orthopnea, PND, abdominal pain, nausea, vomiting, diarrhea, constipation, dysuria, hematuria, frequency, back pain, joint pain or swelling, easy bruising or blooding, skin lesions or rashes. Physical Exam Physical Exam: General: Resting comfortably in his hospital bed. Does not appear ill or toxic. NAD. HEENT: Head is AT/NC buccal mucosa is moist and pink Neck: No JVD. Negative hepatojugular reflex Cardiac: RRR without M/G/R Lungs: CTA without W/R/R Abdomen: Normoactive X4. Soft. No guarding or rigidity. Very mild left lower quadrant tenderness upon deep palpation Extremities: No peripheral clubbing cyanosis or edema Neuro: A&O X4 cranial nerves II through XII are grossly intact no focal neuro deficits Skin: No obvious skin lesions or rashes Psych: Appropriate affect pleasant and cooperative Results & Data Results & Data ([facility]) Vital Signs (Past 12 Hours) Vital Signs Temp Pulse Resp BP BP Pulse Ox 07/02/21 15:51 36.9 C 81 16 143/89 H 97 07/02/21 08:23 36.5 C 74 16 132/90 97 Laboratory Results 07/02/21 06:15 07/02/21 06:15 PG Care Time/CCT Total # of Minutes Spent Total Time Spent with Patient: Total time spent is greater than 50% in coordination of care (as documented) at patient's floor/unit and/or counseling patient: Coding [place] [address] Subseq Hosp Care Lvl 2 Patient Type Established History Expanded Problem Focused Exam Expanded Problem Focused Medical Decision Making Moderate Complexity Diagnoses Diverticulitis of large intestine with abscess K57.20 Diverticulitis bleeding: without bleeding Nodule of lower lobe of right lung R91.1 Hyperlipidemia E78.5 GERD (gastroesophageal reflux disease) K21.9 (1) Diverticulitis of large intestine with abscess Diverticulitis bleeding: without bleeding Qualified Code(s): K57.20 - Diverticulitis of large intestine with perforation and abscess without bleeding
[2021-07-03] MEDS: PIPERACILLIN/TAZOBACTAM 3.375 GM in DEXTROSE 5% 100 ML IV SCH ×3 (02:10→17:44)
[2021-07-03 06:40] LABS: Basophils # (auto) 0.03 K/uL (0-0.2); Basophils % (auto) 0.5 %; Eosinophils # (auto) 0.35 K/uL (0-0.5); Eosinophils % (auto) 5.9 %; Hematocrit (blood only) 43.4 % (42-52); Hemoglobin 15.2 g/dL (14.0-18.0); Immature Granulocytes # (auto) 0.01 K/uL (0.00-0.02); Immature Granulocytes % (auto) 0.2 %; Lymphocytes # (auto) 1.31 K/uL (1.2-3.4); Lymphocytes % (auto) 22.1 %; Mean Corpuscular Hemoglobin 30.2 pg (25-34); Mean Corpuscular Volume 86.3 fL (80-100); Mean Platelet Volume 8.7 fL (7.4-10.4); Monocytes # (auto) 0.68 K/uL (0.11-0.59); Monocytes % (auto) 11.4 %; Neutrophils # (auto) 3.56 K/uL (1.4-6.5); Neutrophils % (auto) 59.9 %; Platelet Count 317 K/uL (130-400); RDW Coefficient of Variation 12.9 % (11.5-14.5); RDW Standard Deviation 40.9 fL (36.4-46.3); Red Blood Count 5.03 M/uL (4.7-6.1); White Blood Count 5.94 K/uL (4.8-10.8)
[2021-07-03] MEDS: LACTATED RINGER'S 1,000 ML IV SCH ×2 (06:55→18:54)
[2021-07-03 07:15] LABS: BUN Creatinine Ratio 6.7 (10-20); Calcium 8.9 mg/dl (8.5-10.1); Creatinine Clr Calc Pharmacy 85.5 ml/min; Est GFR (African American) 82.3 ml/min; Magnesium 2.4 mg/dl (1.8-2.4); Potassium 3.7 mmol/L (3.5-5.1)
--- NOTE | 2021-07-03 07:36 | Surgery Progress Note ---
Date of Service July 03, 2021 Assessment & Plan (1) Diverticulitis of large intestine with abscess: Plan: Please see history of present illness for assessment and plan Admission and Anticipated Discharge Date Admission Date: July 01, 2021 Subjective Patient is awake and alert and his vital signs are stable His affect is normal He has minimal pain-did have some mild crampiness with p.o. intake His abdomen is relatively soft Currently on full liquids-we will continue this Continue IV antibiotics at least another 24 to 48 hours Encourage ambulation Review of Systems Review of Systems: All systems reviewed & are unremarkable except as noted in HPI & below Physical Exam Physical Exam: Abdomen is relatively soft with minimal tenderness Constitutional: no acute distress Eyes: + anicteric sclerae Respiratory: normal respiratory effort; no respiratory distress Cardiovascular: Rate/Rhythm: regular rate Gastrointestinal (Abdomen): See above Musculoskeletal: Head/Neck/Chest: head atraumatic Skin: no rashes, warm and dry Neurologic: awake Psychiatric: Orientation: alert Results & Data ([facility]) Vital Signs (Past 12 Hours) Vital Signs Temp Pulse Resp BP Pulse Ox 07/03/21 07:03 36.6 C 72 16 145/96 H 95 07/02/21 22:30 36.8 C 74 16 136/86 95 PG Care Time/CCT Total # of Minutes Spent Total Time Spent with Patient: Total time spent is greater than 50% in coordination of care (as documented) at patient's floor/unit and/or counseling patient: Coding Level of Care Code 18147 Inpt Consult Level 3 Diagnoses Diverticulitis of large intestine with abscess K57.20 Diverticulitis bleeding: without bleeding (1) Diverticulitis of large intestine with abscess Diverticulitis bleeding: without bleeding Qualified Code(s): K57.20 - Diverticulitis of large intestine with perforation and abscess without bleeding
[2021-07-03] MEDS: FAMOTIDINE 40 MG TABLET PO SCH (07:38)
[2021-07-03] MEDS: PRAVASTATIN SOD 20 MG TAB PO SCH (07:38)
--- NOTE | 2021-07-03 12:46 | Hospitalist Progress Note ---
Date of Service July 03, 2021 Assessment & Plan (1) Diverticulitis of large intestine with abscess: Plan: -CT with acute sigmoid diverticulitis with 4cm pericolonic abscess -seems to be responding to conservative mgmt -Was made n.p.o. upfront and has since been given clear liquids and subsequently uptitrated to full liquid by general surgery -Receiving Zosyn IV -His leukocytosis have since resolved. Has remained afebrile and hemodynamically stable. He does not appear ill or toxic. His abdominal pain has nearly resolved. -General surgery on consultappreciate recommendations. With a 4 cm abscess, may or may not respond clinically. Recommendations are for conservative management. No need for repeat imaging as per general surgery unless patient's clinical status declines. -We will reimage if he develops worsening leukocytosis, fever, hemodynamic instability, worsening pain and/or nausea/vomiting -seen by GI who agrees with outlined plan and a colonscopy in 6 weeks - possible d/c within the next 24-48 hours pending continued clinical improvem ent (2) Nodule of lower lobe of right lung: Plan: Incidental finding -Repeat CT scan in 6 months (3) Hyperlipidemia: Plan: Chronic. Stable -Continue pravastatin 20 mg (4) GERD (gastroesophageal reflux disease): Plan: Chronic. Patient on Omeprazole at home -Pepcid 40mg po daily Plan: -Plan of care discussed with Dr. Bryant. Further orders as warranted. Admission and Anticipated Discharge Date Admission Date: July 01, 2021 Subjective Patient seen on daily rounds today. Denies any F/C, and pain, N/V. Is tolerating full liquids. WBC normal. Afebrile and HD stable General surgery on board. GI has seen patient and agreeable that colonoscopy will be needed in 6 weeks. Review of Systems Review of Systems: All systems reviewed and are unremarkable except as noted in HPI and below Denies fevers, chills, headache, nasal congestion, sore throat, cough, chest pain, shortness of breath, palpitations, orthopnea, PND, abdominal pain, nausea, vomiting, diarrhea, constipation, dysuria, hematuria, frequency, back pain, joint pain or swelling, easy bruising or blooding, skin lesions or rashes. Physical Exam Physical Exam: General: Resting comfortably in his hospital bed. Does not appear ill or toxic. NAD. HEENT: Head is AT/NC buccal mucosa is moist and pink Neck: No JVD. Negative hepatojugular reflex Cardiac: RRR without M/G/R Lungs: CTA without W/R/R Abdomen: Normoactive X4. Soft. No guarding or rigidity. no tenderness noted in all quadrants Extremities: No peripheral clubbing cyanosis or edema Neuro: A&O X4 cranial nerves II through XII are grossly intact no focal neuro deficits Skin: No obvious skin lesions or rashes Psych: Appropriate affect pleasant and cooperative Results & Data Results & Data ([facility]) Vital Signs (Past 12 Hours) Vital Signs Temp Pulse Resp BP Pulse Ox 07/03/21 07:03 36.6 C 72 16 145/96 H 95 Laboratory Results 07/03/21 06:02 07/03/21 06:02 PG Care Time/CCT Total # of Minutes Spent Total Time Spent with Patient: Total time spent is greater than 50% in coordination of care (as documented) at patient's floor/unit and/or counseling patient: Coding [place] [address] Subseq Hosp Care Lvl 2 Patient Type Established History Expanded Problem Focused Exam Expanded Problem Focused Medical Decision Making Moderate Complexity Diagnoses Diverticulitis of large intestine with abscess K57.20 Diverticulitis bleeding: without bleeding Nodule of lower lobe of right lung R91.1 Hyperlipidemia E78.5 GERD (gastroesophageal reflux disease) K21.9 (1) Diverticulitis of large intestine with abscess Diverticulitis bleeding: without bleeding Qualified Code(s): K57.20 - Diverticulitis of large intestine with perforation and abscess without bleeding
[2021-07-04] MEDS: PIPERACILLIN/TAZOBACTAM 3.375 GM in DEXTROSE 5% 100 ML IV SCH ×3 (02:10→18:01)
[2021-07-04] MEDS: LACTATED RINGER'S 1,000 ML IV SCH (06:04)
--- NOTE | 2021-07-04 07:22 | Surgery Progress Note ---
Date of Service July 04, 2021 Assessment & Plan (1) Diverticulitis of large intestine with abscess: Plan: Maximiliano is feeling well this morning. +BM this morning. He remains afebrile. Abdomen is soft and non-tender. Currently on full liquid diet- will advance. Encouraged to go slow with diet. Encouraged ambulation. He is eager for discharge, but is aware that he will need another 1-[address] days of IV antibiotics[address] Dr[address] Persaud with above note-probable discharge tomorrow on p.o. antibiotics Admission and Anticipated Discharge Date Admission Date: July 01, 2021 Subjective Patient is awake and alert and his vital signs are stable He denies abdominal pain. Is currently on full-liquids diet- reports that he is hungry and would like to try regular diet. +Bowel movement this morning. Eager for discharge. Physical Exam Constitutional: no acute distress Respiratory: no respiratory distress, no labored breathing and does not use accessory muscles Gastrointestinal (Abdomen): Percussion/Palpation: abdomen soft; abdomen nontender and no guarding Psychiatric: A+Ox3, euthymic affect Results & Data ([facility]) Vital Signs (Past 12 Hours) Vital Signs Temp Pulse Resp BP Pulse Ox 07/04/21 06:57 36.4 C L 74 16 142/95 H 96 07/03/21 22:10 36.5 C 77 16 139/93 95 PG Care Time/CCT Total # of Minutes Spent Total Time Spent with Patient: Total time spent is greater than 50% in coordination of care (as documented) at patient's floor/unit and/or counseling patient: Coding Level of Care Code 15763 Subseq Hosp Care Lvl 2 Diagnoses Diverticulitis of large intestine with abscess K57.20 Diverticulitis bleeding: without bleeding (1) Diverticulitis of large intestine with abscess Diverticulitis bleeding: without bleeding Qualified Code(s): K57.20 - Diverticulitis of large intestine with perforation and abscess without bleeding
[2021-07-04] MEDS: PRAVASTATIN SOD 20 MG TAB PO SCH (07:41)
[2021-07-04] MEDS: FAMOTIDINE 40 MG TABLET PO SCH (07:41)
[2021-07-04 07:47] LABS: Basophils # (auto) 0.02 K/uL (0-0.2); Basophils % (auto) 0.4 %; Eosinophils # (auto) 0.26 K/uL (0-0.5); Eosinophils % (auto) 4.8 %; Hematocrit (blood only) 43.4 % (42-52); Hemoglobin 15.1 g/dL (14.0-18.0); Immature Granulocytes # (auto) 0.02 K/uL (0.00-0.02); Immature Granulocytes % (auto) 0.4 %; Lymphocytes # (auto) 1.36 K/uL (1.2-3.4); Lymphocytes % (auto) 25.1 %; Mean Corpuscular Hemoglobin 29.8 pg (25-34); Mean Corpuscular Hgb Conc 34.8 g/dL (32-36); Mean Corpuscular Volume 85.8 fL (80-100); Mean Platelet Volume 8.5 fL (7.4-10.4); Monocytes # (auto) 0.54 K/uL (0.11-0.59); Neutrophils # (auto) 3.21 K/uL (1.4-6.5); Neutrophils % (auto) 59.3 %; Platelet Count 345 K/uL (130-400); RDW Coefficient of Variation 12.8 % (11.5-14.5); Red Blood Count 5.06 M/uL (4.7-6.1); White Blood Count 5.41 K/uL (4.8-10.8)
[2021-07-04 08:07] LABS: BUN Creatinine Ratio 5.9 (10-20); Calcium 9.1 mg/dl (8.5-10.1); Creatinine Clr Calc Pharmacy 83.3 ml/min; Est GFR (African American) 79.9 ml/min; Est GFR (Non-African American) 68.9 ml/min; Magnesium 2.5 mg/dl (1.8-2.4); Potassium 3.8 mmol/L (3.5-5.1)
[2021-07-04] MEDS: ACETAMINOPHEN 325 MG TAB PO PRN (10:22)
--- NOTE | 2021-07-04 14:06 | Hospitalist Progress Note ---
Date of Service July 04, 2021 Assessment & Plan (1) Diverticulitis of large intestine with abscess: Plan: -CT with acute sigmoid diverticulitis with 4cm pericolonic abscess -seems to be responding to conservative mgmt -Initially n.p.o. for bowel rest. Slowly upgraded from clear liquid to full now to a regular diet and tolerating oral intake -Receiving Zosyn IV -His leukocytosis have since resolved. Has remained afebrile and hemodynamically stable. He does not appear ill or toxic. His abdominal pain has nearly resolved. -General surgery on board for comanagement as this is a complicated diverticulitisappreciate recommendations. With a 4 cm abscess, may or may not respond clinically. Recommendations are for conservative management. No need for repeat imaging as per general surgery unless patient's clinical status declines. -would reimage in the event:worsening leukocytosis, fever, hemodynamic instability, worsening pain and/or nausea/vomiting -seen by GI who agrees with outlined plan and a colonscopy in 6 weeks -Patient seems ready for discharge and eager but general surgery requesting additional 24 to 48 hours of IV antibiotic therapy. (2) Nodule of lower lobe of right lung: Plan: Incidental finding -Repeat CT scan in 6 months (3) Hyperlipidemia: Plan: Chronic. Stable -Continue pravastatin 20 mg (4) GERD (gastroesophageal reflux disease): Plan: Chronic. Patient on Omeprazole at home -Pepcid 40mg po daily Plan: -Plan of care discussed with Dr. Bryant. Further orders as warranted. Admission and Anticipated Discharge Date Admission Date: July 01, 2021 Subjective Patient seen on daily rounds today. Vocalizes no complaints or concerns. Denies fevers, chills, abdominal pain, nausea or vomiting Seen by general surgery early this morning and diet advanced. Tolerating a regular diet. Frustrated and eager to go home General surgery recommending an additional day of IV antibiotic therapy Review of Systems Review of Systems: All systems reviewed and are unremarkable except as noted in HPI and below Denies fevers, chills, headache, nasal congestion, sore throat, cough, chest pain, shortness of breath, palpitations, orthopnea, PND, abdominal pain, nausea, vomiting, diarrhea, constipation, dysuria, hematuria, frequency, back pain, joint pain or swelling, easy bruising or blooding, skin lesions or rashes. Physical Exam Physical Exam: General: Resting comfortably in his hospital bed. Does not appear ill or toxic. NAD. HEENT: Head is AT/NC buccal mucosa is moist and pink Neck: No JVD. Negative hepatojugular reflex Cardiac: RRR without M/G/R Lungs: CTA without W/R/R Abdomen: Normoactive X4. Soft. Only very subtle tenderness with deep palpation to the left lower quadrant. Stable exam findings Extremities: No peripheral clubbing cyanosis or edema Neuro: A&O X4 cranial nerves II through XII are grossly intact no focal neuro deficits Skin: No obvious skin lesions or rashes Psych: Appropriate affect pleasant and cooperative Results & Data Results & Data ([facility]) Vital Signs (Past 12 Hours) Vital Signs Temp Pulse Resp BP Pulse Ox 07/04/21 06:57 36.4 C L 74 16 142/95 H 96 PG Care Time/CCT Total # of Minutes Spent Total Time Spent with Patient: Total time spent is greater than 50% in coordination of care (as documented) at patient's floor/unit and/or counseling patient: Coding [place] [address] Subseq Hosp Care Lvl 2 Patient Type Established History Expanded Problem Focused Exam Expanded Problem Focused Diagnoses Diverticulitis of large intestine with abscess K57.20 Diverticulitis bleeding: without bleeding Nodule of lower lobe of right lung R91.1 Hyperlipidemia E78.5 GERD (gastroesophageal reflux disease) K21.9 (1) Diverticulitis of large intestine with abscess Diverticulitis bleeding: without bleeding Qualified Code(s): K57.20 - Diverticulitis of large intestine with perforation and abscess without bleeding
[2021-07-05] MEDS: PIPERACILLIN/TAZOBACTAM 3.375 GM in DEXTROSE 5% 100 ML IV SCH ×2 (02:16→09:55)
[2021-07-05 05:23] LABS: Basophils # (auto) 0.03 K/uL (0-0.2); Basophils % (auto) 0.4 %; Eosinophils # (auto) 0.37 K/uL (0-0.5); Eosinophils % (auto) 5.2 %; Hematocrit (blood only) 43.7 % (42-52); Hemoglobin 15.2 g/dL (14.0-18.0); Immature Granulocytes # (auto) 0.05 K/uL (0.00-0.02); Immature Granulocytes % (auto) 0.7 %; Lymphocytes # (auto) 1.95 K/uL (1.2-3.4); Lymphocytes % (auto) 27.7 %; Mean Corpuscular Hemoglobin 29.9 pg (25-34); Mean Corpuscular Hgb Conc 34.8 g/dL (32-36); Mean Corpuscular Volume 85.9 fL (80-100); Mean Platelet Volume 8.4 fL (7.4-10.4); Monocytes % (auto) 9.9 %; Neutrophils # (auto) 3.95 K/uL (1.4-6.5); Neutrophils % (auto) 56.1 %; Platelet Count 352 K/uL (130-400); RDW Coefficient of Variation 12.7 % (11.5-14.5); RDW Standard Deviation 39.8 fL (36.4-46.3); Red Blood Count 5.09 M/uL (4.7-6.1); White Blood Count 7.05 K/uL (4.8-10.8)
[2021-07-05 06:01] LABS: BUN Creatinine Ratio 6.9 (10-20); Calcium 8.6 mg/dl (8.5-10.1); Est GFR (African American) 64.7 ml/min; Est GFR (Non-African American) 55.8 ml/min; Potassium 3.9 mmol/L (3.5-5.1)
[2021-07-05] MEDS: PRAVASTATIN SOD 20 MG TAB PO SCH (06:13)
[2021-07-05] MEDS: FAMOTIDINE 40 MG TABLET PO SCH (06:13)
--- NOTE | 2021-07-05 09:58 | Surgery Progress Note ---
Date of Service July 05, 2021 Assessment & Plan (1) Diverticulitis of large intestine with abscess: Plan: ok for d/c on po abx low fiber diet until BMs formed f/u in clinic within 2 weeks Admission and Anticipated Discharge Date Admission Date: July 01, 2021 Subjective tolerating diet, no fevers, having loose BMs Physical Exam Gastrointestinal (Abdomen): Inspection/Auscultation: abdomen normal to inspection Percussion/Palpation: abdomen soft; abdomen nontender Results & Data ([facility]) Vital Signs (Past 12 Hours) Vital Signs Temp Pulse Resp BP BP Pulse Ox 07/05/21 07:32 36.4 C L 77 18 144/102 H 97 07/04/21 23:04 36.3 C L 75 16 154/103 H 98 PG Care Time/CCT Total # of Minutes Spent Total Time Spent with Patient: Total time spent is greater than 50% in coordination of care (as documented) at patient's floor/unit and/or counseling patient: Coding Level of Care Code 98229 Subseq Hosp Care Lvl 1 Diagnoses Diverticulitis of large intestine with abscess K57.20 Diverticulitis bleeding: without bleeding (1) Diverticulitis of large intestine with abscess Diverticulitis bleeding: without bleeding Qualified Code(s): K57.20 - Diverticulitis of large intestine with perforation and abscess without bleeding
--- NOTE | 2021-07-05 10:38 | Discharge Summary ---
Date of Service July 05, 2021 Admission HPI Per Admitting Provider Maximiliano Márquez is a 50-year-old male presenting with diverticular abscess. Patient first developed abdominal pain on the evening of . He reports that he ate rather poorly that day. In the evening he developed severe lower abdominal pain and the feeling that he could not have a bowel movement. He states he passed a small bowel movement and some gas with relief. His symptoms then lasted approximately 1 day and resolved. Patient experienced similar symptoms beginning 2 days ago. He reports that he ate rather poorly during the day, a lot of sweets and desserts. In the evening he developed severe lower abdominal pain which has progressed over the last 2 days. The pain is sharp and stabbing in nature and radiates into his rectum. He has been taking Ex-Lax and passing very small stools. He is passing flatus. Last full bowel movement was 2 days ago. Last meal is also 2 days ago. Patient endorses subjective fevers and chills as well as mild nausea. He denies chest pain, palpitations, shortness of breath, cough. Denies vomiting or diarrhea. No melena or hematochezia. No additional complaints at this time. ER attending discussed patient with General Surgery who recommended GI consultation and IV antibiotics. ER course: Morphine, Zosyn, Zofran Principal Diagnosis Diverticulitis with large abscess Discharge Exam General: sitting at bedside. Does not appear ill or toxic. NAD. HEENT: Head is AT/NC buccal mucosa is moist and pink Neck: No JVD. Negative hepatojugular reflex Cardiac: RRR without M/G/R Lungs: CTA without W/R/R Abdomen: Normoactive X4. Soft. Nontender. Stable exam findings Extremities: No peripheral clubbing cyanosis or edema Neuro: A&O X4 cranial nerves II through XII are grossly intact no focal neuro deficits Skin: No obvious skin lesions or rashes Psych: Appropriate affect pleasant and cooperative Discharge Data Allergies Allergy/AdvReac Type Severity Reaction Status Date / Time No Known Allergies Allergy Verified 07/01/21 08:40 Consultations 07/01/21 12:29 ED Decision to Admit Stat 07/01/21 16:09 Consult Gastroenterology Routine Consult General Surgery Routine Ordered Studies 07/01/21 08:38 CT abd pelvis oral and IV con Stat Hospital Course (1) Diverticulitis of large intestine with abscess: -CT with acute sigmoid diverticulitis with 4cm pericolonic abscess -seems to be responding to conservative mgmt -Initially n.p.o. for bowel rest. Slowly upgraded from clear liquid to full now to a regular diet and tolerating oral intake -Receiving Zosyn IV -His leukocytosis have since resolved. Has remained afebrile and hemodynamically stable. He does not appear ill or toxic. His abdominal pain has nearly resolved. -General surgery on board for comanagement as this is a complicated diverticulitisappreciate recommendations. With a 4 cm abscess, may or may not respond clinically. Recommendations are for conservative management. No need for repeat imaging as per general surgery unless patient's clinical status declines. -would reimage in the event:worsening leukocytosis, fever, hemodynamic instability, worsening pain and/or nausea/vomiting -seen by GI who agrees with outlined plan and a colonscopy in 6 weeks -Patient will be discharged on : on oral antibiotics: augmentin for an additional 5 days. -will recommend repeat blood work on monday to check WBC and creatinine. Blood presure was creeping up during hospital stay, recommend close followup with PCP. (2) Nodule of lower lobe of right lung: Incidental finding -Repeat CT scan in 6 months (3) Hyperlipidemia: Chronic. Stable -Continue pravastatin 20 mg (4) GERD (gastroesophageal reflux disease): Chronic. Patient on Omeprazole at home -Pepcid 40mg po daily -Plan of care discussed with Dr. Bryant. Further orders as warranted. Total Time Total Time Spent Total Time Spent (In Minutes): 32 Discharge Plan Discharge Items Patient Disposition: Home - Self-Care Reason For Visit: DIVERTICULAR ABSCESS Discharge Diagnosis: diverticular abscess Activity: Resume your previous activity Non-emergency contact: Primary Care Provider Call non-emergency contact if: you have any medication questions Follow-up/Referrals: Albertina Miranda CRNP [Nurse Practitioner] - (Schedule colonoscopy in 6 weeks.) Oscar Graham MD, FACS [Surgeon] - 07/12/21 1:15 pm (Please call to make an appt in 1-2 weeks) Hailey Dale PA-C [Primary Care Provider] - 07/15/21 10:50 am Diet: Low Fiber Addtl Attending Provider Instructions: Your CT- scan showed an acute sigmoid diverticulitis with 4cm pericolonic abscess Thankfully, you responded to antibiotics. Your diet slowy was upgraded dto a regular diet. Your elevated white count which increases with infection improved. -will recommend repeat blood work on monday. No need for repeat imaging as per general surgery unless you start to feel worse: fever, worsenening white blood cell count, worsening pain. and/or nausea/vomiting -GI recommends colonscopy in 6 weeks Take antibiotics for 5 more days on a full stomach Nodule of lower lobe of right lung: This was an Incidental finding -Repeat CT scan in 6 months Pending Studies at Discharge: No Stand-Alone Forms: My [facility] [employer], Smoking Cessation Medications and DC Order Prescriptions: New amoxicillin-pot clavulanate [Augmentin] 875-125 mg tablet 1 tab PO Q8H 5 Days Qty: 15 RF: 0 Continued omeprazole 20 mg Capsule,Delayed Release(Dr/Ec) 20 mg PO QAM RF: 0 loratadine [Claritin] 10 mg Tablet 10 mg PO QAM RF: 0 pravastatin 20 mg Tablet 20 mg PO QAM Qty: 30 RF: 0 Discharge Orders: Discharge Order (Routine); Ordered 07/05/21 Ordered By: Steve Darnell/Other Patient Handouts: ED Diverticulitis Admission Data Admit Date/Time: 07/01/21 13:21 Attending Provider: Steve Shaffer Admit Provider: Erica Rodas Primary Care Provider: Hailey Dale Other Providers: Giovanni Chamorro ; Oscar Graham ; Erica Rodas Other Interventions: Discharge Summary Assessment (RN) Last Done: 07/05/21 10:26 Coding Level of Care Code D/C DAY MANAGEMENT >30 MINS Diagnoses Diverticulitis of large intestine with abscess K57.20 Diverticulitis bleeding: without bleeding Nodule of lower lobe of right lung R91.1 Hyperlipidemia E78.5 GERD (gastroesophageal reflux disease) K21.9
== END 2021-07-05 11:46 | disposition home or self-care (01) | DRG 392 ==
LOC: ED 08:12 → 3W 13:21 → SUATTDRO 13:21 → 3W 15:57